=== PATIENT | male | born 1980 | race African-American/Black ===

== ENCOUNTER → 2018-02-23 | Outpatient (CLI) | payer OTHER ==
[2018-02-26 09:23] LABS: Hepatitis B Surface Antibody Negative
[2018-02-26 10:01] LABS: Hepatitis B Surface Antigen Negative (Negative)
== END | disposition home or self-care (01) ==
LOC: LAB 10:24
PROVIDERS: ATTEND Nurse Practitioner
DX: Z57.8 Occupational exposure to other risk factors (principal)
CPT/HCPCS: 36415; 86703; 86706; 86803; 87340

== ENCOUNTER 2024-01-23 10:08 | Day surgery (SDC) | payer MEDICAID ==
[2024-01-22 10:16] LABS: Urine Bacteria NONE SEEN /hpf (None Seen); Urine Blood Negative /uL (Negative); Urine Clarity Clear (Clear); Urine Color Yellow (Yellow); Urine Protein, UAD Negative (Negative); Urine Specific Gravity 1.017 (1.001-1.035); Urine Urobilinogen Normal (Negative); Urine WBC 1 /hpf (0 - 3)
[2024-01-22 10:18] LABS: Basophils # (auto) 0.1 10 ^3/uL (0-0.2); Basophils % (auto) 0.9 % (0.0-2.0); Eosinophils # (auto) 0.1 10 ^3/uL (0-0.8); Eosinophils % (auto) 1.6 % (0.0-7.0); Hematocrit 40.8 % (41.0-53.0); Hemoglobin 13.9 g/dL (13.5-17.5); Lymphocytes # (auto) 2.2 10 ^3/uL (0.4-5.4); Mean Corpuscular Hemoglobin 31.2 pg (28.0-32.0); Mean Corpuscular Volume 91.9 fL (80.0-100.0); Monocytes # (auto) 0.4 10 ^3/uL (0-1.3); Monocytes % (auto) 7.1 % (0.0-12.0); Neutrophils # (auto) 2.8 10 ^3/uL (1.6-8.6); Neutrophils % (auto) 50.4 % (37.0-80.0); Red Blood Cells 4.44 10^6/uL (4.5-5.90); Red Cell Distribution Width 13.1 % (11.8-14.3); White Blood Cell 5.6 10^3/uL (4.4-10.8)
[2024-01-22 10:32] LABS: INR 1.08 (0.9-1.15); Partial Thromboplastin Time 31.6 SEC (24.5-34.5); Prothrombin Time 11.3 sec (9.3-11.8)
[2024-01-22 10:40] LABS: Alanine Aminotransferase 14 U/L (7-40); Alkaline Phosphatase 35 U/L (46-116); Anion Gap 1 (5-15); Aspartate Aminotransferase 17 U/L (13-40); BUN/Creatinine Ratio 11.2 (10.0-20.0); Blood Urea Nitrogen 12 mg/dL (9-23); Calcium 9.8 mg/dL (8.5-10.1); Carbon Dioxide 31 mmol/L (20-30); Chloride 107 mmol/L (98-107); Glucose 114 mg/dL (74-106); Potassium 4.4 mmol/L (3.5-5.1); Sodium 139 mmol/L (136-145)
[2024-01-22 10:41] LABS: Bilirubin, Total 0.5 mg/dL (0.2-1.0); Total Protein 7.3 g/dL (5.7-8.2)
[~2024-01-23] VITALS: Ht 182.9 cm; Wt 74.8 kg
[2024-01-23] MEDS ORDERED: MIDAZOLAM HCL 2MG/2ML 2ml VIAL (1mg/ml) ONE (14:18)
[2024-01-23] MEDS ORDERED: PROPOFOL 10 MG/ML 20 ML IV ONE (14:18)
[2024-01-23] MEDS ORDERED: fentaNYL CITRATE 0 ML ONE (14:18)
[2024-01-23] MEDS ORDERED: MEPERIDINE HCL (25 MG/ML) 1ML VIAL ONE (14:18)
[2024-01-23] MEDS ORDERED: DexAMETHasone SOD PHOS 10MG/1ML VIAL INJ ONE (14:18)
[2024-01-23] MEDS ORDERED: fentaNYL CITRATE 100 MCG/2 ML VL ONE (14:18)
[2024-01-23] MEDS: LIDOCAINE W/ EPINEPHRINE 1% 20ML VIAL ONE (14:40)
[2024-01-23 14:48] VITALS: TEMP 98.7; O2SAT 99
[2024-01-23 15:15] VITALS: BP 138/78; PULSE 60; RESP 14; O2SAT 100
== END 2024-01-23 15:35 | disposition home or self-care (01) ==
LOC: SUR 10:08
PROVIDERS: ATTEND Urology
DX: Z30.2 Encounter for sterilization (principal); R39.15 Urgency of urination; R32 Unspecified urinary incontinence; Z79.899 Other long term (current) drug therapy; Z98.890 Other specified postprocedural states
CPT/HCPCS: 36415; 52000; 55250; 80053; 81001; 85025; 85610; 85730; 87086; 88305; J1100; J2175; J2250; J2704; J3010